=== PATIENT | female | born 1975 | race Caucasian/White ===

== ENCOUNTER 2018-09-28 08:41 | Inpatient (IN) ==
[2018-09-28 09:45] LABS: BASO# 0.02 X1000 (0.0-0.2); BASO% 0.2 % (0.0-0.8); EOS# 0.05 X1000 (0.0-0.7); EOS% 0.4 % (0.0-10.0); HEMATOCRIT 54.6 % (37.0-47.0); HEMOGLOBIN 18.6 g/dL (12.0-16.0); IMM GRAN# 0.04 X1000 (0.0-0.04); IMM GRAN% 0.3 % (0.0-0.5); LYMPH# 0.98 X1000 (1.2-3.4); LYMPH% 7.9 % (20.5-51.1); MCH 29.2 PG (27-31); MCHC 34.1 g/dL (33-37); MCV 85.8 FL (81-99); MONO# 1.37 X1000 (0.11-0.59); MPV 11.7 FL (7.4-10.4); NEUT# 10.01 X1000 (1.4-6.5); NEUT% 80.2 % (42.2-75.2); PLT 319 X1000 (130-400); RBC 6.36 XMIL (4.2-5.4); RDW 13.6 % (11.5-14.5); WBC 12.47 X1000 (4.8-10.8)
[2018-09-28 09:57] LABS: ALB/GLOB RATIO 1.3; ALBUMIN 5.4 g/dL (3.5-5.0); CALCIUM 11.3 mg/dL (8.8-10.2); CREATININE 2.6 mg/dL (0.5-0.9); POTASSIUM 3.8 mmol/L (3.5-5.1); TOTAL BILIRUBIN 0.45 mg/dL (0.20-1.00); TOTAL PROTEIN 9.5 g/dL (6.3-8.3)
--- NOTE | 2018-09-28 13:30 | Diag Imaging Result Doc PS360 ---
CT ABDOMEN/PELVIS W/O CONTRAST - 09/28/2018 INDICATION: lower abdominal pain/tenderness COMPARISON: 03/17/2017 FINDINGS: Stable findings of subtotal colectomy. There is severe gas and fluid distention of the stomach, duodenum, and much of the proximal small bowel. The transition point is probably at the midline in the posterior abdomen just below the aortic bifurcation. See image 105. No free air or free fluid. The distal small bowel is completely collapsed. There is only a small amount of stool in the rectum. Uterus is absent or atrophic. Urinary bladder is normal. Bony structures are intact. There are cholecystectomy clips. There is a nonobstructing right renal stone. This measures about 4 mm. No hydronephrosis or hydroureter. IMPRESSION: High-grade mechanical small bowel obstruction at the level of the aortic bifurcation. This exam was performed using automated exposure control, adjustment of mA or kV according to patient size, and/or use of iterative reconstruction technique Electronically signed by Moreno Esparza 09/28/2018 1:28 PM
[2018-09-28 13:56] LABS: URINE SOURCE CLEAN CATCH
[2018-09-28 13:58] LABS: BILIRUBIN URINE NEGATIVE (NEGATIVE); BLOOD URINE SMALL (NEGATIVE); COLOR YELLOW; GLUCOSE URINE TRACE mg/dL (NEGATIVE); KETONE URINE TRACE mg/dL (NEGATIVE); LEUKOCYTES URINE TRACE (NEGATIVE); NITRITE URINE NEGATIVE (NEGATIVE); PROTEIN URINE 50 mg/dL (NEGATIVE); SP GRAVITY URINE 1.028; TURBIDITY URINE HAZY (CLEAR); UR EPITHELIAL CELLS >10 /HPF (<10); URINE BACTERIA 1+ /HPF; URINE RBC <10 /HPF (<10); URINE WBC TNTC /HPF (<10); UROBILINOGEN URINE NORMAL (NORMAL)
--- NOTE | 2018-09-28 15:19 | PROVIDER DOCUMENTATION ---
This chart was entered by Cristiana Stuart Scribe, acting as scribe for Lb Olivera MD. HPI-Abdominal Pain/GI Problem - General Chief Complaint: Abdominal Pain Stated Complaint: ABD PAIN,VOMITING,DONT HAVE A LARGE INTESTINE Time Seen by Provider: 09/28/18 13:57 Source: patient Allergies/Adverse Reactions: Patient Allergies Allergy/AdvReac Type Severity Reaction Status Date / Time No Known Allergies Allergy Verified 07/01/18 21:10 Home Medications: Home Medication List Medication Instructions Recorded Confirmed Last Taken Type Ondansetron [Ondansetron Odt] 8 mg PO TID PRN PRN 06/23/14 01/01/17 01/01/17 08:00 History Clonazepam [Klonopin] 1 mg PO BID PRN PRN #8 tablet 07/21/14 01/01/17 01/01/17 08:00 Rx Dextroamphetamine/Amphetamine 30 mg PO BID 01/01/17 01/01/17 01/01/17 08:00 History [Adderall 30 mg Tablet] Estradiol 2 mg PO DAILY 01/01/17 01/01/17 01/01/17 08:00 History Hydrocodone/APAP 7.5 mg/325 mg 1 each PO Q6H PRN PRN #12 tablet 01/01/17 Unknown Rx [[place]-7.5] Vortioxetine Hydrobromide 20 mg PO DAILY 01/01/17 01/01/17 01/01/17 08:00 History [Trintellix] - History of Present Illness-ABD Nature of Presenting Problems: Patient is a 42 year old female who presents with generalized abdominal pain with nausea and vomiting that has been present for 2 days. History of prior abdominal surgeries including a bowel resection. Denies diarrhea and fever. Abdominal Pain Onset Location: reports: generalized abdomen Pain Radiation: reports: no radiation Quality of Pain: reports: aching, cramping Severity in ED: reports: moderate Onset/Duration: reports: 2 days ago Timing: reports: still present, getting worse Activities at Onset: reports: light activity Modifying Factors: improves with: nothing Associated Symptoms: reports: nausea, vomiting Last BM: 3 days ago Similar Symptoms Previously?: Yes Recently seen or treated by another doctor?: No Review of Systems - Adult - REVIEW OF SYSTEMS - ADULT Constitutional: reports: no symptoms reported. denies: chills, fever, fatique Eyes: reports: no symptoms reported Ears, Nose, Mouth & Throat: reports: no symptoms reported Cardiovascular: reports: no symptoms reported Respiratory: reports: no symptoms reported Gastrointestinal: reports: abdominal pain (generalized), nausea, vomiting. denies: diarrhea Genitourinary: reports: no symptoms reported Musculoskeletal: reports: no symptoms reported. denies: back pain, muscle aches, neck pain Integumentary: reports: no symptoms reported Neurological: reports: no symptoms reported Psychiatric: reports: no symptoms reported Endocrine: reports: no symptoms reported Hematologic/Lymphatic: reports: no symptoms reported Allergic/Immunologic: reports: no symptoms reported All Other Systems: Reviewed and Negative Past History - Adult - PAST MEDICAL HISTORY-ADULT Review of Records: reports: Nursing Assessment Review, Medications Reviewed, Social history reviewed & non-contributory. 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; multiple surgeries.) Neurological: reports: denies history Psychiatric: reports: anxiety, depression Endocrine/Immune: reports: denies history Other Conditions: reports: denies history - PRIOR SURGERIES/PROCEDURES Surgical/Procedure History: reports: appendectomy, cholecystectomy, hysterectomy , , bowel surgery, other (colectomy 2008; multiple facial surgeries) - PRIOR HOSPITALIZATIONS Prior Hospitalizations: reports: other (none recent) - IMMUNIZATION STATUS Childhood Immunizations: UTD Flu Vaccine: UTD - FAMILY HISTORY Family History: reviewed, not pertinent, diabetes - SOCIAL HISTORY Smoking: cigarettes, less than 1 pack/day Provider spent 3-5 mins advising pt. on dangers of tobacco.: Discussed manners to quit use, and f/u contacts for add'l counseling. Substance Use: denies Physical Exam-General - PHYSICAL EXAM-ADULT Initial Vital Signs Reviewed: Yes - CONSTITUTIONAL General Appearance: alert, mild distress. negative: lethargic, slow to respond - HEAD, EARS, NOSE, MOUTH & THROAT HENMT: other (dry mucous membranes). negative: angioedema, hearing deficit - RESPIRATORY Respiratory: chest non-tender, lungs clear, normal breath sounds. negative: crackles, rhonchi - CARDIOVASCULAR Cardiovascular: normal peripheral pulses, regular rate, rhythm. negative: tachycardia, systolic murmur - GASTROINTESTINAL (ABDOMEN) Abdominal Exam: normal bowel sounds, soft, distended, tenderness (diffuse worse in LLQ) - MUSCULOSKELETAL Extremity: non-tender, normal inspection. negative: deformity, swelling - SKIN Integumentary: normal color, normal turgor, warm/dry. negative: cyanosis, jaundice - PSYCHIATRIC Psych/Mental Status: normal mood/affect, oriented x 3. negative: paranoid, tearful Progress - PLAN OF CARE/RESULTS Progress/Plan/Lab Results: Vital Signs - 8 hr 09/28/18 09:02 09/28/18 11:59 Temperature 97.6 F 97.3 F L Pulse Rate 102 H 115 H Respiratory Rate 16 16 Blood Pressure 108/93 98/62 O2 Sat by Pulse Oximetry 97 97 Laboratory Results - last 24 hr 09/28/18 09/28/18 09/28/18 09:28 09:28 13:47 WBC 12.47 H RBC 6.36 H Hgb 18.6 H Hct 54.6 H MCV 85.8 MCH 29.2 MCHC 34.1 RDW Std Deviation 13.6 Plt Count 319 MPV 11.7 H Immature Gran % (Auto) 0.3 Neut % (Auto) 80.2 H Lymph % (Auto) 7.9 L [place] % (Auto) 11.0 H Eos % (Auto) 0.4 Baso % (Auto) 0.2 Immature Gran # (Auto) 0.04 Neut # (Auto) 10.01 H Lymph # (Auto) 0.98 L [place] # (Auto) 1.37 H Eos # (Auto) 0.05 Baso # (Auto) 0.02 Sodium 134 L Potassium 3.8 Chloride 84 L Carbon Dioxide 26 Anion Gap 24 BUN 24 H Creatinine 2.6 H Estimated GFR/1.73 m2 20 BUN/Creatinine Ratio 9 Glucose 233 H Calculated Osmolality 280 Calcium 11.3 H Total Bilirubin 0.45 AST 27 ALT 23 Alkaline Phosphatase 112 H Total Protein 9.5 H Albumin 5.4 H Globulin 4.1 Albumin/Globulin Ratio 1.3 Lipase 12 L Urine Source CLEAN CATCH Urine Color YELLOW Urine Turbidity HAZY Urine pH 5.0 Ur Specific Daisy 1.028 Urine Protein 50 A Ur Glucose (Stick) TRACE Ur Ketones (Stick) TRACE A Urine Blood SMALL A Urine Nitrite NEGATIVE Urine Bilirubin NEGATIVE Urobilinogen Dipstick NORMAL Urine Leukocytes TRACE A Urine WBC (Auto) TNTC A Urine RBC (Auto) <10 U Epithel Cells (Auto) >10 A Urine Bacteria (Auto) 1+ Orders Category Date Time Status NPO Diet 09/28/18 09:[address] ABDOMEN/PELVIS W/O CONTRAST [CT] Stat Exams 09/28/18 12:09 Completed CBC WITH DIFF [HEME] Stat Lab 09/28/18 09:28 Completed COMPREHENSIVE METABOLIC PANEL [CHEM] Stat Lab 09/28/18 09:28 Completed LIPASE [CHEM] Stat Lab 09/28/18 09:28 Completed URINALYSIS [URINALYSIS] Stat Lab 09/28/18 13:47 Completed Abd Pain/OB <20 weeks Stat Oth 09/28/18 09:06 Ordered Result Diagrams: 09/28/18 09:28 09/28/18 09:28 - CT/MRI 1 CT Study: Abdomen, Pelvis Impression: See EMR Report (CT ABDOMEN/PELVIS W/O CONTRAST - 09/28/2018 INDICATION: lower abdominal pain/tenderness COMPARISON: 03/17/2017 FINDINGS: Stable findings of subtotal colectomy. There is severe gas and fluid distention of the stomach, duodenum, and much of the proximal small bowel. The transition point is probably at the midline in the posterior abdomen just below the aortic bifurcation. See image 105. No free air or free fluid. The distal small bowel is completely collapsed. There is only a small amount of stool in the rectum. Uterus is absent or atrophic. Urinary bladder is normal. Bony structures are intact. There are cholecystectomy clips. There is a nonobstructing right renal stone. This measures about 4 mm. No hydronephrosis or hydroureter. IMPRESSION: High-grade mechanical small bowel obstruction at the level of the aortic bifurcation. This exam was performed using automated exposure control, adjustment of mA or kV according to patient size, and/or use of iterative reconstruction technique Electronically signed by Moreno Esparza 09/28/2018 1:28 PM 09/28/18 [id number] Interpreting Physician: Moreno Esparza MD Dictated Date/Time: 09/28/18 2989 cc: Mela Vo; Lalito De Jesus MD) - CONSULTS/PCP/HOSPITALIST Notification #1 *Consult/PCP/Hospitalist*: Dr Cummings Time Discussed: 15:18 Consult Disposition: other (agreed to consult) #2 Consult: Vicky lacey Hospitalist Time Discussed: 15:18 Consult Disposition: Will see in ED, Admit Departure - Departure Date of Disposition Decision: 09/28/18 Time of Disposition Decision: 15:19 DIAGNOSIS: UTI (urinary tract infection), Renal insufficiency, Bowel obstruction Disposition: ADMITTED INPATIENT 09 Certified Medical Emergency: Emergent Condition: Fair Referrals and Follow-Ups: Lalito De Jesus MD [Primary Care Provider] - - Critical Care Note This patient required my direct & personal management of CC.: Yes Total Time (mins): 35 Critical Care Statement: This patient required my direct personal management to treat or rule out processes, the absence of which, could potentiallly result in sudden, clinically significant life or limb threatening deterioration. Attestation - Physician/ KRYS Attestation Patient care was provided by Advanced Practice Provider:: No The physician spent face to face time with patient:: Yes Advanced Practice Provider documentation review:: Supervising physician onsite and consulted in the evaluation and care of this patient. The physician did have a face to face encounter with the patient. This chart was documented by the indicated scribe, (Cristiana Stuart, Fredo) and accurately reflects the services I performed and decisions made by me, Lb Olivera MD, as attested by the provider's signature.
[2018-09-28] MEDS ORDERED: ZOFRAN IV ONE (15:21)
[2018-09-28] MEDS ORDERED: DILAUDID IV ONE (15:21)
[2018-09-28] MEDS ORDERED: NS 1,000 ML IV ONE (16:00)
[2018-09-28] MEDS: NS 1,000 ML IV SCH (16:30)
[2018-09-28] MEDS: PROTONIX IV SCH (16:30)
[2018-09-28] MEDS: DILAUDID IV PRN (16:30)
[2018-09-28] MEDS: ATIVAN IV PRN (16:40)
[2018-09-28] MEDS ORDERED: ATIVAN IV ONE (16:57)
[2018-09-28] MEDS: ZOFRAN IV PRN (17:27)
[2018-09-28] MEDS ORDERED: NORCURON ONE (17:46)
[2018-09-28] MEDS ORDERED: XYLOCAINE-MPF 2% ONE (17:46)
[2018-09-28] MEDS ORDERED: QUELICIN (DOSE) ONE (17:46)
[2018-09-28] MEDS ORDERED: DIPRIVAN 1% ONE (17:46)
[2018-09-28] MEDS ORDERED: SODIUM CHLORIDE 0.9% 10 ML ONE (17:46)
--- NOTE | 2018-09-28 18:47 | Diag Imaging Result Doc PS360 ---
CHEST/ABD TUBE PLACEMENT - 09/28/2018 INDICATION: TUBE PLACEMENT COMPARISON: 11/12/2016 FINDINGS: There is a nasogastric tube in good position in the stomach. The lungs are clear. Heart size is normal. No pneumothorax or pleural effusion. IMPRESSION: Nasogastric tube in stomach. Electronically signed by Moreno Esparza 09/28/2018 6:45 PM
[2018-09-28] MEDS ORDERED: ROCEPHIN 1 GM in NS 50 ML IV SCH (19:30)
--- NOTE | 2018-09-28 19:51 | CONSULTATION ---
DATE OF CONSULTATION: 09/28/2018 HISTORY OF PRESENT ILLNESS: Ms. Keke Dougherty, over the last 48 hours, has been experiencing crampy abdominal pain, nausea and vomiting. She presented to the emergency department where part of her evaluation was a CT scan of her abdomen and pelvis, which suggested a small bowel obstruction. She has had previous abdominal surgery. We were asked to evaluate her because of her small bowel obstruction. PAST MEDICAL HISTORY: She has had a hysterectomy. She has had colon surgery. She has had a cholecystectomy. MEDICATIONS: Unknown. ALLERGIES: No known drug allergies. SOCIAL HISTORY: She lives here locally. PHYSICAL EXAMINATION: General: On exam, Ms. Dougherty is a slim, middle-aged, white female. She is in no acute distress, but her heart rate is elevated and she is uncomfortable in her abdomen. An NG tube is just about to be placed. She is awake, cooperative. She had no jaundice, no oral lesions. Lymphatic: No cervical or supraclavicular lymphadenopathy. Heart: Has regular rate. Lungs: Were clear to auscultation and percussion bilaterally. Abdomen: Was distended. There was no evidence of acute abdomen. There was no palpable mass. No evidence of hernia. She had a lower midline incision. Rectal exam: Was not performed. Extremities: She does have palpable peripheral pulses. No peripheral edema. Neurological: She is alert and oriented x3 and appropriate. DIAGNOSTICS: I reviewed the CT scan myself and she has dilated proximal small bowel. It appears that her obstruction may be due to the retroperitoneum at the level of aortic bifurcation. PLAN: An NG tube is being placed. She is being rehydrated with IV fluids and they are looking for a room for her to be transferred from the emergency department. If her symptoms do not improve, she will need exploratory laparotomy with lysis of adhesions. cc: Cassi Cummings MD
--- NOTE | 2018-09-28 19:55 | HISTORY AND PHYSICAL ---
CHIEF COMPLAINT: He has abdominal pain and vomiting. HISTORY OF PRESENT ILLNESS: This is a 42-year-old female who presented to the emergency room complaining of 2 days of generalized abdominal pain with nausea and vomiting. She carries a history of multiple abdominal surgeries, including a hemicolectomy. She states that this was a sudden onset and once it started, it has just gradually increased. She describes the pain at its lowest as a 2/10, and at its worst as a 10/10, with an aching, cramping type pain. She denied any diarrhea, constipation, any black or bloody vomitus or stools. PAST MEDICAL HISTORY: 1. Fibromyalgia. 2. Anxiety. 3. Chronic pain. 4. Depression. 5. History of dysfunctional bowel. 6. Migraine headaches. PAST SURGICAL HISTORY: 1. [place] [address] [place]. 2. Cholecystectomy. 3. Appendectomy. SOCIAL HISTORY: She is . She lives with her . She denies any alcohol or illicit drug use. She does smoke about a half a pack a day. ALLERGIES: No known drug allergies. HOME MEDICATIONS: A list will be obtained by the nursing staff and once verified, will review and restart as appropriate. REVIEW OF SYSTEMS: Discussed with patient with pertinent positives stated in the HPI. She denied any syncope, dizziness, chest pain, palpitations, any black or bloody vomitus or stools, any diarrhea or constipation, any hematuria, dysuria, frequency, urgency. PHYSICAL EXAMINATION: GENERAL: This is a 42-year-old female who is lying in the bed in moderate distress. VITAL SIGNS: Blood pressure is 139/90 with heart rate of 87, respirations are 16, temperature is 97.6 degrees. EYES: Pupils equal, round, and react to light. EOMs are intact. Sclerae anicteric. HEAD: Normocephalic, atraumatic. ENT: Mucous membranes are dry. NECK: Supple with trachea midline. CARDIOVASCULAR: Regular rate and rhythm. S1 and S2 appreciated. No murmurs. EXTREMITIES: She has no lower extremity edema. Calves are nontender to palpation. Peripheral pulses are palpable x4 extremities. PULMONARY: Breath sounds are clear with no increased work of breathing noted. Chest rises and falls symmetrically with respiration. Chest wall is nontender to palpation. GASTROINTESTINAL: Abdomen is distended, but soft. She has generalized tenderness that is worse in the left lower quadrant. Bowel sounds are hypoactive. GENITOURINARY: She has no costovertebral angle tenderness nor suprapubic tenderness. SKIN: Warm and dry. NEUROLOGIC: She is alert and oriented x3. LABS: WBC is 12.4 with hemoglobin 18.6, hematocrit 54.6, and platelets of 319,000. Sodium 134, potassium 3.8, BUN 24, creatinine 2.6, with a glucose of 233. Lipase is 12, alkaline phosphatase is 112, with albumin of 5.4. ASSESSMENT AND PLAN: 1. Small-bowel obstruction. The patient will remain n.p.o. Will place a nasogastric tube. Consult to Dr. Cummings, General Surgery. 2. Presumed urinary tract infection. We will obtain a urine culture. Give Rocephin and further antibiotics will be culture driven. 3. Leukocytosis. This could be reactive from her small bowel obstruction, although she could have a urinary tract infection. We will trend her labs daily and monitor. 4. Acute kidney injury. This is very likely secondary to dehydration. We will rehydrate, and renal dose medications. TREND LABS. 5. Abdominal pain. We will use Dilaudid. 6. Nausea. We will give Zofran. 8. We will obtain a flat and upright in the morning, CBC, CMP, magnesium. Further treatment pending hospital course. Dictated by KATLYN Solis for Darien Rapp MD This chart was documented by, KATLYN Solis and accurately reflects the services performed, treatment plan and medical decisions as attested by the providers signature Darien Rapp MD. cc: KATLYN Solis MD [facility] [place] [facility]
[2018-09-28] MEDS ORDERED: MORPHINE ONE (20:05)
[2018-09-28] MEDS ORDERED: ROBINUL ONE (20:28)
[2018-09-28] MEDS ORDERED: TORADOL ONE (20:29)
[2018-09-28] MEDS ORDERED: D5 1/2 NS + KCL 20 MEQ 1,000 ML ONE (20:45)
[2018-09-28 20:47] LABS: URINE SOURCE CATH
[2018-09-28 20:48] LABS: BILIRUBIN URINE NEGATIVE (NEGATIVE); BLOOD URINE SMALL (NEGATIVE); COLOR YELLOW; GLUCOSE URINE NEGATIVE (NEGATIVE); KETONE URINE TRACE mg/dL (NEGATIVE); LEUKOCYTES URINE NEGATIVE (NEGATIVE); NITRITE URINE NEGATIVE (NEGATIVE); PH URINE 5.5; PROTEIN URINE 70 mg/dL (NEGATIVE); SP GRAVITY URINE 1.022; TURBIDITY URINE HAZY (CLEAR); UR EPITHELIAL CELLS >10 /HPF (<10); URINE BACTERIA NEGATIVE /HPF; URINE RBC <10 /HPF (<10); UROBILINOGEN URINE NORMAL (NORMAL)
[2018-09-28 20:54] LABS: URINE CASTS NONE SEEN; URINE YEAST NONE SEEN
--- NOTE | 2018-09-28 21:26 | OPERATIVE NOTE ---
PROCEDURE DATE: 09/28/2018 PREOPERATIVE DIAGNOSIS: Small bowel obstruction. POSTOPERATIVE DIAGNOSIS: Small bowel obstruction. PRINCIPAL PROCEDURE: Exploratory laparotomy with lysis of adhesions. SURGEON: Cassi Cummings MD. ANESTHESIA: General. ESTIMATED BLOOD LOSS: 50 mL. DRAINS: None. INDICATION: Keke Dougherty is a 42-year-old white female who has had previous abdominal surgery. She presented to our emergency department with a 2-day history of abdominal pain, nausea and vomiting. A CT scan was part of her evaluation, which suggested a small bowel obstruction as did her exam. Exploratory laparotomy was recommended. FINDINGS: She had an obstruction involving a loop of mid jejunum adhered to her retroperitoneum. The proximal bowel was tightly distended, and the distal bowel was completely decompressed. We released this adhesion and cured the obstruction. We took some time to milk the air and fluid of the proximal bowel into the stomach, and it was removed with NG tube suction. We placed the bowel back in its anatomically correct position and omentum over it and then closed the wound. DESCRIPTION OF PROCEDURE: The patient was brought to the operating room, placed supine, received general anesthesia and was intubated. Her abdomen was prepped and draped within the sterile field. She did have a Hoyos catheter tube placed. We used an Ioban on the skin. She was already receiving IV antibiotics. We made a periumbilical midline incision with a 10 blade scalpel, and this was carried down through the skin into the subcutaneous tissue. I used cautery to transect the subcutaneous tissue to the midline fascia, which we carefully opened and entered the abdomen. She had had a previous lower midline incision. Once we entered the abdomen, we had to take down some adhesions between the omentum and the anterior abdominal wall using cautery. We then brought out the distended loops of bowel through our midline incision and followed them down to adhesions in the retroperitoneum, which we carefully took down using scissors and sometimes the cautery. We mobilized the entire length of the small bowel. We lysed all adhesions interloop and any adhesions between the small bowel retroperitoneum. We took some time to milked back the air and fluid into the stomach where it was removed with NG suction. We then placed the bowel back in its anatomically correct position with the greater omentum over the surface of the bowel, and we closed the midline incision with a running #1 Maxon stitch. We irrigated the wound and then closed the skin with a skin clip film printer. A dry dressing was applied. She tolerated the procedure well with plans for her to go the recovery room and be admitted to the floor. cc: Cassi Cummings MD
[2018-09-28] MEDS: KLONOPIN PO SCH (23:11)
[2018-09-29] MEDS: DILAUDID IV PRN ×7 (00:12→23:24)
[2018-09-29] MEDS: ATIVAN IV PRN ×3 (01:10→16:06)
[2018-09-29] MEDS ORDERED: D5 1/2 NS + KCL 20 MEQ 1,000 ML IV SCH (03:00)
[2018-09-29] MEDS: PROTONIX IV SCH ×2 (04:57→17:08)
[2018-09-29 06:44] LABS: BASO# 0.01 X1000 (0.0-0.2); BASO% 0.1 % (0.0-0.8); EOS# 0.07 X1000 (0.0-0.7); EOS% 0.9 % (0.0-10.0); HEMATOCRIT 43.2 % (37.0-47.0); HEMOGLOBIN 14.8 g/dL (12.0-16.0); LYMPH% 7.9 % (20.5-51.1); MCH 29.4 PG (27-31); MCHC 34.3 g/dL (33-37); MCV 85.9 FL (81-99); MONO# 1.33 X1000 (0.11-0.59); MONO% 17.4 % (1.7-9.3); NEUT# 5.62 X1000 (1.4-6.5); NEUT% 73.7 % (42.2-75.2); PLT 230 X1000 (130-400); RBC 5.03 XMIL (4.2-5.4); RDW 12.9 % (11.5-14.5); WBC 7.63 X1000 (4.8-10.8)
[2018-09-29 07:24] LABS: ALB/GLOB RATIO 1.1; ALBUMIN 3.6 g/dL (3.5-5.0); CREATININE 1.3 mg/dL (0.5-0.9); MAGNESIUM 2.7 mg/dL (1.5-2.7); POTASSIUM 4.2 mmol/L (3.5-5.1); TOTAL BILIRUBIN 0.33 mg/dL (0.20-1.00); TOTAL PROTEIN 6.8 g/dL (6.3-8.3)
[2018-09-29] MEDS: NS 1,000 ML IV SCH (08:55)
[2018-09-29] MEDS: KLONOPIN PO SCH ×2 (08:56→23:23)
--- NOTE | 2018-09-29 09:50 | Diag Imaging Result Doc PS360 ---
EXAM: ABDOMEN FLAT/UPRIGHT HISTORY: SBO TECHNIQUE: Flat and upright, two views COMPARISON: 09/28/2018 FINDINGS: There are multiple midline skin [place]. Surgical clips are present in the mid abdomen bilaterally. A nasogastric tube enters the stomach. There are sutures in the pelvis. The bowel loops are not dilated on the current exam. No organomegaly. IMPRESSION: Interval improvement Electronically signed by Zackary Douglass 09/29/2018 9:48 AM
--- NOTE | 2018-09-29 13:58 | PROGRESS NOTE ---
DATE: 09/29/2018 SUBJECTIVE: Ms. Keke Dougherty is a 42-year-old white female, who is now postop day 1 from exploratory laparotomy with lysis of adhesions because of a small bowel obstruction. She had previous abdominal surgery. Today she is awake with an NG tube in. She also has a Hoyos catheter tube in. OBJECTIVE: Her heart rate is 107 blood pressure 149/86, O2 saturation 98%. She is on nasal cannula O2. She is afebrile. Her white blood cell count is normal. Hematocrit 43%. Her BUN and creatinine have improved with hydration. Today, her BUN is 28, creatinine is 1.3. PLAN: We will continue NG tube suction on postop day 1 exploratory laparotomy. We will plan to remove her Hoyos catheter tube seven o'clock tomorrow a.m. We will stop antibiotics. She had no evidence of intra-abdominal infection. We need to increase her activity. I began her on Lovenox, and we will remove her intermittent compression hose. cc: Cassi Cummings MD
[2018-09-29] MEDS: D5 NS + KCL 20 MEQ 1,000 ML IV SCH ×2 (16:03→17:08)
[2018-09-29] MEDS: SODIUM CHLORIDE 0.9% INJ SCH (17:08)
--- NOTE | 2018-09-29 17:13 | PROGRESS NOTE ---
DATE: 09/29/2018 SUBJECTIVE: The patient is resting in bed. She is status post exploratory laparotomy with lysis of adhesions secondary to small bowel obstruction, postoperative day #1. We will continue with IV fluids. We will continue with pain medication. Family members at the bedside. All their questions were answered. OBJECTIVE: Vital Signs: Temperature 98.3 degrees, pulse 104, respiratory rate 20, blood pressure 137/89, oxygen saturation 99 on nasal cannula 2 L. HEENT: Head normocephalic. No trauma. PERRLA. Neck: Supple. No JVD. No masses. Central trachea. Chest: Clear to auscultation. No wheezing. No rales. Abdomen: Distended. Decreased bowel sounds. Generalized tenderness to palpation mostly at the level of the mid area. Extremities: No edema, no clubbing, no cyanosis. Neurological: The patient is alert and oriented x3. No focal deficits. LABORATORY DATA: WBC 7.6, hemoglobin 14.8, hematocrit 43.2, platelets 230,000. Sodium 127, potassium 4.2, chloride 88, bicarbonate 26, BUN 28, creatinine 1.3, glucose 139, calcium 9, AST 26, ALT 20, alkaline phosphatase 67, albumin 3.6. ASSESSMENT AND PLAN: 1. Small bowel obstruction status post exploratory laparotomy with lysis of adhesions, postoperative day #1. Surgery department following this patient closely. I can not hear bowel sounds. She has been placed on fluids. We will continue to monitor and try to correct the electrolytes. 2. Hyponatremia. I have switched the half normal saline to normal saline, we will monitor. We will continue with the same management. 3. Leukocytosis, resolved. 4. Possible urinary tract infection. Negative urine cultures so far. She was not complaining of burning sensation. I do not think she has an infection. Antibiotics have been stopped already. 5. Acute kidney injury. This is getting better, likely secondary to severe dehydration. 6. Dehydration, continue with IV fluids. Kidney function getting better. 7. Abdominal pain per #1. 8. Nausea. Continue with Zofran. She was complaining of nausea at the moment of my evaluation. cc: Stephen Reynoso MD
[2018-09-29] MEDS: ZOFRAN IV PRN (19:56)
[2018-09-30] MEDS: ZOFRAN IV PRN ×6 (00:03→22:21)
[2018-09-30] MEDS: DILAUDID IV PRN ×7 (02:25→22:21)
[2018-09-30] MEDS: ATIVAN IV PRN ×3 (02:26→22:21)
[2018-09-30] MEDS: D5 NS + KCL 20 MEQ 1,000 ML IV SCH ×2 (04:10→16:12)
[2018-09-30] MEDS: SODIUM CHLORIDE 0.9% INJ SCH (04:10)
[2018-09-30] MEDS: PROTONIX IV SCH ×2 (04:10→16:36)
[2018-09-30] MEDS: LOVENOX SUBQ SCH (05:04)
[2018-09-30 07:40] LABS: BASO# 0.01 X1000 (0.0-0.2); BASO% 0.2 % (0.0-0.8); EOS# 0.08 X1000 (0.0-0.7); EOS% 1.8 % (0.0-10.0); HEMATOCRIT 38.3 % (37.0-47.0); HEMOGLOBIN 12.6 g/dL (12.0-16.0); LYMPH# 0.68 X1000 (1.2-3.4); LYMPH% 15.6 % (20.5-51.1); MCH 29.2 PG (27-31); MCHC 32.9 g/dL (33-37); MCV 88.7 FL (81-99); MONO# 0.85 X1000 (0.11-0.59); MONO% 19.5 % (1.7-9.3); MPV 11.6 FL (7.4-10.4); NEUT# 2.75 X1000 (1.4-6.5); NEUT% 62.9 % (42.2-75.2); PLT 170 X1000 (130-400); RBC 4.32 XMIL (4.2-5.4); RDW 12.7 % (11.5-14.5); WBC 4.37 X1000 (4.8-10.8)
[2018-09-30 08:13] LABS: AGAP 9; ALBUMIN 3.1 g/dL (3.5-5.0); ALKALINE PHOSPHATASE 69 U/L (32-104); BUN 13 mg/dL (8-22); CALCIUM 8.7 mg/dL (8.8-10.2); CHLORIDE 96 mmol/L (98-107); COSMO 268; CREATININE 0.5 mg/dL (0.5-0.9); ESTIMATED GFR > 60; GLUCOSE 121 mg/dL (70-104); GOT 14 U/L (10-30); GPT 12 U/L (10-36); POTASSIUM 4.3 mmol/L (3.5-5.1); SODIUM 133 mmol/L (136-145); TCO2 28 mmol/L (25-35); TOTAL PROTEIN 6.1 g/dL (6.3-8.3)
[2018-09-30] MEDS: KLONOPIN PO SCH ×2 (08:47→23:29)
--- NOTE | 2018-09-30 10:27 | GENERAL SURGERY PROGRESS NOTE ---
DATE: 09/30/2018 SUBJECTIVE: Patient seems to be doing okay. She has not passed any gas yet. Not sick to her stomach. OBJECTIVE: Vital Signs: Patient is currently afebrile. Her vital signs stable. General: No acute distress. Cardiovascular: Regular rate and rhythm. Lungs: Grossly clear. Abdomen: Soft, appropriately tender. ASSESSMENT AND PLAN: A 42-year-old, currently postoperative day #2 from exploratory laparotomy and lysis of adhesions. Postoperative state. At this time, we will get the patient to ambulate. We will discontinue her Hoyos catheter. We will monitor for return of bowel function, but at this time it does not seem like she has had any yet. Hopefully, she will start to have return of bowel function and get the NG tube out and start her on a clear liquid diet. We will continue to monitor. cc: Prashant Donald MD
--- NOTE | 2018-09-30 13:46 | PROGRESS NOTE ---
DATE: 09/30/2018 SUBJECTIVE: Patient is resting in bed. She is status post exploratory laparotomy with lysis of adhesions secondary to small bowel obstruction, postoperative day #2. Vital signs are stable. Kidney function recovered completely. Electrolytes are okay. She is still having good output coming from the NG tube. The Hoyos catheter has been removed. We will continue with the same management. OBJECTIVE: Vital Signs: Temperature 99.6 degrees, pulse 100, respiratory rate 16, blood pressure 128/80, oxygen saturation 100% on 2 L of nasal cannula. HEENT: Head normocephalic, no trauma. PERRLA. Neck: Supple. No JVD. No masses. Central trachea. Chest: Clear to auscultation. No wheezing. No rales. Abdomen: Distended. Decreased bowel sounds. Generalized tenderness to palpation mostly at the level of the mid area. Extremities: No edema, no clubbing, no cyanosis. Neurological examination: The patient is alert and oriented x3. No focal deficits. LABORATORY: WBC 4.3, hemoglobin 12.6, hematocrit 38.3, platelets 170. Sodium 133, potassium 4.3, chloride 96, bicarbonate 28. BUN 13, creatinine 0.5, glucose 121, calcium 8.7, albumin 3.1. ASSESSMENT AND PLAN: 1. Small bowel obstruction status post exploratory laparotomy with lysis of adhesions, postoperative day #2. Surgery Department following this patient closely, decreased bowel sounds, continue with intravenous fluids. 2. Hyponatremia, better compared with yesterday. Continue with same treatment. 3. Leukocytosis, resolved. 4. Possible urinary tract infection. Negative urine cultures so far times two. 5. Acute kidney injury; this is resolved. 6. Dehydration, continue with intravenous fluids, resolved. 7. Abdominal pain, per #1. 8. Nausea, continue with the same management. She is not having nausea at this moment, but she has been having a good output coming from the stomach. cc: Stephen Reynoso MD
[2018-10-01] MEDS: DILAUDID IV PRN ×6 (01:05→20:32)
[2018-10-01] MEDS: ZOFRAN IV PRN ×5 (01:33→20:41)
[2018-10-01] MEDS: ATIVAN IV PRN ×2 (03:56→17:10)
[2018-10-01] MEDS: D5 NS + KCL 20 MEQ 1,000 ML IV SCH (05:40)
[2018-10-01] MEDS: PROTONIX IV SCH ×2 (05:41→17:10)
[2018-10-01] MEDS: LOVENOX SUBQ SCH (05:41)
[2018-10-01] MEDS: SODIUM CHLORIDE 0.9% INJ SCH ×2 (05:41→17:10)
[2018-10-01 06:41] LABS: BASO# 0.01 X1000 (0.0-0.2); BASO% 0.2 % (0.0-0.8); EOS% 2.2 % (0.0-10.0); HEMATOCRIT 37.1 % (37.0-47.0); IMM GRAN# 0.02 X1000 (0.0-0.04); IMM GRAN% 0.4 % (0.0-0.5); LYMPH# 0.69 X1000 (1.2-3.4); MCH 29.2 PG (27-31); MCHC 32.3 g/dL (33-37); MCV 90.3 FL (81-99); MONO# 0.92 X1000 (0.11-0.59); MPV 11.2 FL (7.4-10.4); NEUT# 2.87 X1000 (1.4-6.5); NEUT% 62.2 % (42.2-75.2); PLT 164 X1000 (130-400); RBC 4.11 XMIL (4.2-5.4); WBC 4.61 X1000 (4.8-10.8)
[2018-10-01 07:01] LABS: AGAP 9; ALB/GLOB RATIO 0.9; ALBUMIN 2.8 g/dL (3.5-5.0); ALKALINE PHOSPHATASE 72 U/L (32-104); BUN 11 mg/dL (8-22); CALCIUM 8.6 mg/dL (8.8-10.2); CHLORIDE 104 mmol/L (98-107); COSMO 280; CREATININE 0.5 mg/dL (0.5-0.9); ESTIMATED GFR > 60; GLUCOSE 118 mg/dL (70-104); GOT 12 U/L (10-30); GPT 9 U/L (10-36); MAGNESIUM 1.9 mg/dL (1.5-2.7); POTASSIUM 3.9 mmol/L (3.5-5.1); SODIUM 140 mmol/L (136-145); TCO2 27 mmol/L (25-35); TOTAL BILIRUBIN 0.27 mg/dL (0.20-1.00)
--- NOTE | 2018-10-01 07:20 | GENERAL SURGERY PROGRESS NOTE ---
DATE: 10/01/2018 SUBJECTIVE: The patient seems to be doing okay. Her NG tube was removed accidentally yesterday, but she is passing gas and doing okay otherwise. OBJECTIVE: Vital Signs: The patient is currently afebrile. Her vital signs are stable. General: No acute distress. Cardiovascular: Regular rate and rhythm. Lungs: Grossly clear. Abdomen: Soft, appropriately tender. Bowel sounds auscultated. ASSESSMENT AND PLAN: A 42-year-old female, currently postoperative day #3 from exploratory laparotomy and lysis of adhesions. Postoperative state. At this time, she seems to have some return of bowel function. Will put her on a clear liquid diet and see how she does. Will keep the nasogastric tube out. cc: Prashant Donald MD
--- NOTE | 2018-10-01 07:37 | Diag Imaging Result Doc PS360 ---
EXAM: CHEST-PORTABLE HISTORY: NG tube placement TECHNIQUE: Chest abdomen single view COMPARISON: 09/28/2018 FINDINGS: The nasogastric tube has been pulled back. The tip is near the gastroesophageal junction. The lungs are clear. No cardiomegaly. No free air beneath the diaphragm. The vessels visualized bowel loops in the upper abdomen are less distended than on the prior exam. The midline skin inidana and there are surgical clips bilaterally in the abdomen. IMPRESSION: Nasogastric tube with its tip near the gastroesophageal junction. Electronically signed by Zackary Douglass 10/01/2018 7:35 AM
[2018-10-01] MEDS: KLONOPIN PO SCH ×2 (10:14→20:33)
[2018-10-01] MEDS: D5 1/2 NS + KCL 20 MEQ 1,000 ML IV SCH (10:15)
--- NOTE | 2018-10-01 10:30 | PROGRESS NOTE ---
DATE: 10/01/2018 SUBJECTIVE: Patient resting comfortably in bed. She is status post exploratory laparotomy with lysis of adhesions secondary to small bowel obstruction, postoperative day #3. Vital signs and lab work stable. Today, Surgery Department started this patient on liquid diet, and the NG tube has been removed. Lets see how she does. OBJECTIVE: Vital Signs: Temperature 99 degrees, pulse 97, respiratory rate 16, blood pressure 123/75, oxygen saturation 95% on room air. HEENT: Head normocephalic. No trauma. PERRLA. Neck: Supple. No JVD. No masses. Central trachea. Chest: Clear to auscultation. No wheezing. No rales. Abdomen: Soft. Tenderness to palpation at the level of the periumbilical area and around the abdominal wound. The wound is clean, dry, and intact, and is covered with a new dressing. Extremities: No edema, no clubbing, no cyanosis. Neurological: The patient is alert and oriented x3. No focal neurological deficits. LABORATORY DATA: WBC 4.6, hemoglobin 12, hematocrit 37.1, platelets 164,000. Sodium 140, potassium 3.9, chloride 104, bicarbonate 27, BUN 11, creatinine 0.5, glucose 118, calcium 8.6. AST 12, ALT 9, alkaline phosphatase 72, albumin 2.8. ASSESSMENT AND PLAN: 1. Small bowel obstruction, status post exploratory laparotomy with lysis of adhesions, postoperative day #3. Surgery Department following this patient. Decreased bowel sounds, but we have started this patient on a liquid diet. Lets see how she does. Continue with intravenous fluids as well. 2. Hyponatremia, resolved. 3. Leukocytosis, resolved. 4. Possible urinary tract infection. This patient has been having a negative urine culture since 09/28/2018. 5. Acute kidney injury, resolved. 6. Dehydration, resolved. 7. Abdominal pain per #1. 8. Nausea. Continue with the same management. She is not having nausea at this moment. 9. I have requested Physical Therapy evaluation. cc: Stephen Reynoso MD
[2018-10-01] MEDS: INDERAL PO SCH (20:33)
[2018-10-01] MEDS: LAMICTAL PO SCH (20:34)
[2018-10-02] MEDS: LITHIUM CARBONATE PO SCH ×2 (00:19→21:42)
[2018-10-02] MEDS: DILAUDID IV PRN ×7 (00:19→22:27)
[2018-10-02] MEDS: ZOFRAN IV PRN ×2 (01:08→17:56)
[2018-10-02] MEDS: ATIVAN IV PRN ×2 (01:09→14:40)
[2018-10-02] MEDS: D5 1/2 NS + KCL 20 MEQ 1,000 ML IV SCH ×3 (01:14→17:35)
[2018-10-02] MEDS: LOVENOX SUBQ SCH (06:50)
[2018-10-02] MEDS: PROTONIX IV SCH ×2 (06:50→17:36)
[2018-10-02] MEDS: SODIUM CHLORIDE 0.9% INJ SCH (06:50)
[2018-10-02 07:23] LABS: AGAP 8; BUN 6 mg/dL (8-22); CALCIUM 9.4 mg/dL (8.8-10.2); CHLORIDE 103 mmol/L (98-107); COSMO 272; CREATININE 0.5 mg/dL (0.5-0.9); ESTIMATED GFR > 60; GLUCOSE 103 mg/dL (70-104); POTASSIUM 3.8 mmol/L (3.5-5.1); SODIUM 137 mmol/L (136-145); TCO2 26 mmol/L (25-35)
[2018-10-02] MEDS: INDERAL PO SCH ×3 (08:55→21:41)
[2018-10-02] MEDS: KLONOPIN PO SCH ×2 (08:55→21:41)
--- NOTE | 2018-10-02 12:15 | PROGRESS NOTE ---
DATE: 10/02/2018 SUBJECTIVE: This patient is resting comfortably in bed. She is status post exploratory laparotomy with lysis of adhesions secondary to small bowel obstruction, postoperative day #4. Vital signs and lab work are stable, she is she is still on a liquid diet. NG tube has been removed yesterday. As per the patient, she has been passing gas and she had a couple of small loose bowel movements today. She is still complaining of abdominal pain, mostly at the level of the perioperative area. OBJECTIVE: Vital Signs: Temperature 98.2 degrees, pulse 84, respiratory rate 16, blood pressure 125/75, oxygen saturation 100% on room air. HEENT: Head normocephalic, no trauma. PERRLA. Neck: Supple. No JVD. No masses. Central trachea. Chest: Clear to auscultation. No wheezing. No rales. Abdomen: Soft. Tenderness to palpation at the level of the periumbilical area and around the abdominal wound. The wound is clean and intact and is covered with a new dressing. Positive bowel sounds. Extremities: No edema, no clubbing, no cyanosis. Neurological: The patient is alert and oriented x3. No focal neurological deficits. LABORATORY: Sodium 137, potassium 3.8, chloride 103, bicarbonate 26, BUN 6, creatinine 0.5, glucose 103, calcium 9.8. ASSESSMENT AND PLAN: 1. Small bowel obstruction, status post exploratory laparotomy with lysis of adhesions, postoperative day #4. Surgery Department following this patient. Decreased bowel sounds, but present. We will continue with the same diet. Continue with IV fluids as well. 2. Hyponatremia, resolved. 3. Leukocytosis, resolved. 4. Possible urinary tract infection. This patient has been having a negative culture for at least 4 days. She is not on antibiotics. UTI has been ruled out. 5. Acute kidney injury, resolved. 6. Dehydration, resolved. 7. Abdominal pain, as per #1. 8. Nausea, resolved, but continue with nausea medication as needed. 9. Continue physical therapy. cc: Stephen Reynoso MD
--- NOTE | 2018-10-02 15:38 | PROGRESS NOTE ---
DATE: 10/02/2018 Ms. Dougherty now postop day 4 from exploratory laparotomy with lysis of adhesions. She is on liquids. Her abdomen remains distended but she has had some flatus. Midline incision is dressed. She has been up out of bed. She is awake and cooperative and I think she is doing well postoperatively. Her heart rate is 84, blood pressure 125/75, O2 saturation 100%. She is afebrile on no antibiotics. cc: Cassi Cummings MD
[2018-10-02] MEDS: LAMICTAL PO SCH (21:41)
[2018-10-03] MEDS: ATIVAN IV PRN ×2 (00:29→08:31)
[2018-10-03] MEDS: DILAUDID IV PRN ×3 (02:19→08:31)
[2018-10-03] MEDS: LOVENOX SUBQ SCH (05:22)
[2018-10-03] MEDS: SODIUM CHLORIDE 0.9% INJ SCH (05:22)
[2018-10-03] MEDS: PROTONIX IV SCH (05:22)
[2018-10-03 06:45] LABS: HEMATOCRIT 40.6 % (37.0-47.0); HEMOGLOBIN 13.4 g/dL (12.0-16.0)
[2018-10-03 07:04] LABS: AGAP 10; BUN 3 mg/dL (8-22); CALCIUM 9.6 mg/dL (8.8-10.2); CHLORIDE 101 mmol/L (98-107); COSMO 268; CREATININE 0.6 mg/dL (0.5-0.9); ESTIMATED GFR > 60; GLUCOSE 129 mg/dL (70-104); SODIUM 135 mmol/L (136-145); TCO2 24 mmol/L (25-35)
[2018-10-03] MEDS: D5 1/2 NS + KCL 20 MEQ 1,000 ML IV SCH (07:12)
[2018-10-03] MEDS: INDERAL PO SCH ×3 (08:32→21:44)
[2018-10-03] MEDS: KLONOPIN PO SCH ×4 (08:33→21:43)
--- NOTE | 2018-10-03 10:36 | PROGRESS NOTE ---
DATE: 10/03/2018 SUBJECTIVE: The patient reports having some loose stools. Also she is passing gas. She is tolerating clear liquid diet very well, and she reports still feeling barely hungry. OBJECTIVE: Vital signs: Temperature is 98.8, heart rate 84, respiratory rate 20, blood pressure 18/72, O2 saturation is 99% on room air. General: This is a 42-year-old female lying in bed, in no acute distress. Cardiovascular: S1, S2 heard. No murmurs, gallops or rubs. Regular rate and rhythm. Respiratory: Clear bilaterally to auscultation. No work of breathing. Not using accessory muscles. Abdomen: Mild tenderness to palpation around the periumbilical area and around the abdominal wound. No signs of peritoneal irritation. Bowel sounds present. No organomegaly. Extremities: No cyanosis, clubbing or edema. Peripheral pulses present in both legs. Neurologic: The patient is alert and oriented x3, moves all 4 extremities. DIAGNOSTIC DATA: Hemoglobin and hematocrit are okay today with normal BMP. ASSESSMENT AND PLAN: 1. Small bowel obstruction, status post exploratory laparotomy with lysis of adhesions, postoperative day number 5. Dr. Cummings from General Surgery is following this patient. According to his last note, the patient is doing okay from his standpoint. We will continue to monitor. The patient is on a clear liquid diet. We will advance diet as tolerated. 2. Hyperlipidemia. Almost back to normal. We will continue to monitor BMP. 3. Acute kidney injury, resolved. 4. Dehydration, resolved. 5. Abdominal pain, secondary to condition number 1, improved. DISPOSITION: At this point, the patient is going to stay in the hospital until cleared by General Surgery. The also is recommended to move around. Physical Therapy has been consulted 2 days ago but they mentioned she is not a candidate for PT and recommended to be helped to move around by nursing staff. cc: Jung Roy MD [facility]
--- NOTE | 2018-10-03 12:54 | PROGRESS NOTE ---
DATE: 10/03/2018 Ms. Dougherty is now postop day 5 from exploratory laparotomy with lysis of adhesions. She has been tolerating liquids, and will advance her diet to a regular diet. We will stop her IV fluids and medications, and change those to p.o. medications. Her heart rate is 84, blood pressure 118/72, and O2 saturation 99%. She is afebrile on no antibiotics. Her electrolytes are within normal limits. Her hematocrit is stable. Her midline incision is dressed without evidence of drainage. Her abdomen is still slightly distended. She has physical therapy seeing her to increase her activity. cc: Cassi Cummings MD
[2018-10-03] MEDS: TORADOL PO PRN ×2 (13:25→21:43)
[2018-10-03] MEDS: NORCO-10 PO PRN ×2 (13:26→20:34)
[2018-10-03] MEDS: LITHIUM CARBONATE PO SCH (20:34)
[2018-10-03] MEDS: LAMICTAL PO SCH (20:35)
[2018-10-04] MEDS: NORCO-10 PO PRN ×2 (01:59→08:56)
[2018-10-04] MEDS: ATIVAN IV PRN (02:03)
[2018-10-04] MEDS: LOVENOX SUBQ SCH (05:11)
[2018-10-04 07:00] LABS: BASO# 0.08 X1000 (0.0-0.2); BASO% 0.6 % (0.0-0.8); EOS# 0.34 X1000 (0.0-0.7); EOS% 2.5 % (0.0-10.0); HEMATOCRIT 40.7 % (37.0-47.0); HEMOGLOBIN 13.5 g/dL (12.0-16.0); IMM GRAN# 0.57 X1000 (0.0-0.04); IMM GRAN% 4.1 % (0.0-0.5); LYMPH% 18.9 % (20.5-51.1); MCH 28.8 PG (27-31); MCHC 33.2 g/dL (33-37); MONO# 1.54 X1000 (0.11-0.59); MONO% 11.2 % (1.7-9.3); MPV 10.6 FL (7.4-10.4); NEUT# 8.62 X1000 (1.4-6.5); NEUT% 62.7 % (42.2-75.2); PLT 348 X1000 (130-400); RBC 4.68 XMIL (4.2-5.4); RDW 12.6 % (11.5-14.5); WBC 13.75 X1000 (4.8-10.8)
[2018-10-04 07:12] LABS: AGAP 8; BUN 5 mg/dL (8-22); CALCIUM 9.7 mg/dL (8.8-10.2); CHLORIDE 99 mmol/L (98-107); COSMO 264; CREATININE 0.7 mg/dL (0.5-0.9); ESTIMATED GFR > 60; GLUCOSE 112 mg/dL (70-104); POTASSIUM 4.1 mmol/L (3.5-5.1); SODIUM 133 mmol/L (136-145); TCO2 26 mmol/L (25-35)
[2018-10-04 08:06] VITALS: BP 123/84
[2018-10-04 08:22] LABS: BANDS 2 % (0-1); EOS 2 % (1-10); LYMPHS 24 % (21-51); MONO 10 % (1-9); SEGS 60 % (42-75)
[2018-10-04] MEDS: ZOFRAN IV PRN (08:52)
[2018-10-04] MEDS: KLONOPIN PO SCH (08:56)
[2018-10-04] MEDS: INDERAL PO SCH (08:56)
[2018-10-04] MEDS ORDERED: PEPCID PO SCH (09:00)
--- NOTE | 2018-10-04 09:34 | DISCHARGE SUMMARY ---
ADMISSION DATE: 09/28/2018 DISCHARGE DATE: 10/04/2018 ADMITTING DIAGNOSIS: Small bowel obstruction. DISCHARGE DIAGNOSIS: Small bowel obstruction. PRINCIPLE PROCEDURES: Exploratory laparotomy with lysis of adhesions on 09/28/2018. DISCHARGE DISABILITY: Full. DISCHARGE MEDICATIONS: She is to return to her home medications. I also wrote her [place] 10 and Zofran. DISCHARGE DIET: Regular. DISCHARGE DISPOSITION: She will return to our outpatient offices next week for followup. HOSPITAL COURSE: Ms. Keke Prieto is a 42-year-old white female who has had previous abdominal surgery. She presented to our emergency department with a 2-day history of abdominal distention, nausea and vomiting. A CT scan suggested a small bowel obstruction and that evening she went to the operating room and underwent exploratory laparotomy with lysis of adhesions. After surgery, she had an NG tube and Hoyos catheter tube in place. She was transferred from the recovery room to [address] [place] [address] where we feel that her postoperative convalescence has been normal. Her bowel was a little bit slow to wake up because it was dilated secondary to the obstruction. We were able to get her NG tube out and slowly increase her diet. Her Hoyos catheter tube came out within 48 hours of surgery. At discharge, her abdomen was softer. She was having some bowel function. She was able tolerate at least liquids without nausea. Her midline incision was healing with skin clips. She was walking the halls. DISCHARGE PHYSICAL EXAMINATION: At discharge, her heart rate was 82 to 102, blood pressure 123/84. She was afebrile on no antibiotics. She was voiding without difficulty. Her white blood cell count was slightly elevated to 13. Hematocrit was 41%, electrolytes were within normal limits. We felt it was safe to discharge her home under the care of her with followup in my outpatient offices next week. She knows to contact me with any problems such as increasing abdominal distention or pain or fever. cc: Cassi Cummings MD
--- NOTE | 2018-10-05 10:23 | DISCHARGE SUMMARY ---
ADMISSION DATE: 09/28/2018 DISCHARGE DATE: 10/04/2018 ADMISSION DIAGNOSIS: 1. Small bowel obstruction. 2. Presumed urinary tract infection. 3. Leukocytosis. 4. Acute kidney injury. 5. Abdominal pain. 6. Intractable nausea. DISCHARGE DIAGNOSIS: 1. Small bowel obstruction status post exploratory laparotomy with lysis of adhesions. Today is postoperative day 6. Performed by Dr. Cummings with General Surgery. 2. Hyperlipidemia almost back to normal. 3. Acute kidney injury, resolved. 4. Dehydration, resolved. 5. Abdominal pain secondary to number 1 that has improved. CONSULTATIONS: Cassi Cummings MD. SURGERIES AND PROCEDURES: On 09/28/2018, Ms. Keke Dougherty a 42-year-old female went in for exploratory laparotomy with lysis of adhesion due to a small bowel obstruction due to a history of previous abdominal surgery. HOSPITAL COURSE: On 09/28/2018, Ms. Keke Dougherty a 42-year-old female presented to the emergency room with complaints of 2 days of generalized pain, nausea, and vomiting. She apparent has had multiple abdominal surgeries including a hemicolectomy, it was a sudden onset and gradually increased, had cramping. Denied diarrhea, constipation, black or bloody stools, or vomitus. There was questionable urinary tract infection but no growth in the urine. She was given Rocephin for that initially. For her small bowel obstruction, she was made n.p.o. They placed a NG tube and then she went for surgery to have her exploratory laparotomy. She received IV fluids hydration, which improved her acute kidney injury. NG tube was removed on 10/01. During the stay, she did get a little weak and there was an order for physical therapy, who saw her on the . She was started on clear liquid, eventually due to the stopping of her nausea may advance the diet as tolerated. She was able to have 2 bowel movements on the and started having an intake of 50% to 75% of her diet and was deemed appropriate for discharge home. Labs remained stable along with vital signs. DISCHARGE VITAL SIGNS: Temperature 97.9, heart rate 102, respiratory rate 18, blood pressure 123/84, O2 saturation 98% on room air. DISCHARGE LAB DATA: White blood cells 13,000, hemoglobin 13, hematocrit 40, platelet count 348. Sodium 133, potassium 4.1, BUN 5, creatinine 0.7, glucose 112, calcium 9.7. PERTINENT IMAGING WHILE HERE: On 09/28/2018, had abdominal and pelvic CT: High-grade mechanical small bowel obstruction at the level of the aortic bifurcation. NG tube was placed into the stomach. On the , abdominal x-ray showed interval improvement. On the , had a chest x-ray to see if the NG tube was in place and it was not at that time. DISCHARGE MEDICATIONS: 1. Lamictal 150 mg p.o. nightly. 2. [place] carbonate 300 mg p.o. nightly. 3. Adderall 30 mg p.o. twice daily. 4. Estradiol 2 mg p.o. daily. 5. Inderal 10 mg p.o. t.i.d. 6. Zofran 8 mg p.o. t.i.d. p.r.n. 7. Klonopin 1 mg p.o. twice daily p.r.n. 8. [place] 10 1 tablet p.o. every 6 hours p.r.n. 9. Zofran 4 mg p.o. every 6 hours p.r.n. DISCHARGE DIET: Regular. DISCHARGE ACTIVITY: No driving while taking pain medication. No heavy lifting, and activity as tolerated. WOUND CARE: Keep incision dry and clean. No bath or submerging incision in water. DISCHARGE INSTRUCTIONS: If your condition changes, contact your physician and/or return to the emergency department. Changes may include but are not limited to shortness of breath, increased fatigue, excess bleeding, unexplained weight loss or gain, unimaginable pain, signs or symptoms of infection. DISCHARGE FOLLOWUP: Dr. Cummings on 10/11/2018 at 1:45 p.m. and to follow up with primary care provider, Dr. De Jesus. DISCHARGE DISPOSITION: Home. Dictated by KATLYN Keller for Andrew Rodriguez MD cc: KATLYN Keller
== END 2018-10-04 11:36 | disposition home or self-care (01) | DRG 336 ==
LOC: ED 08:41 → SUATTDRO 08:42 → 4N 08:42
PROVIDERS: ATTEND Internal Medicine
CPT/HCPCS: 71010; 71045; 74000; 74018; 74019; 74020; 74176; 80048; 80053; 81001; 83690; 83735; 85014; 85018; 85025; 87088; 96374; 96375; 97162; 99285; A9270; C9113; J0330; J0696; J1170; J1650; J1885; J2060; J2270; J2405; J3480; J7030; J7042; S0164